=== PATIENT | male | born 1980 | race Caucasian/White ===

== ENCOUNTER 2021-12-21 11:32 | Outpatient (CLI) | payer OTHER, SELFPAY ==
--- OUTSIDE RECORDS SUMMARY | 2021-12-21 11:35 | XMS_ITS | Encounter Summary ---
:1980 Author Care Team Providers Name Role Phone Zeke James MD Referring Provider [phone] Reason for Visit New Patient Visit Assessment and Plan 1. Lesion of penis Discussion Note 41 year old male with palpable ~1cm are a of firmness in mid shaft of penis. Patient does not have any associated pain or voi ding concerns. Suspect this is calcification of penile dorsal vessel. Another conside ring was sebaceous cyst, however, there are no superficial findings on exam to suppo rt this. No further workup required at this time. If he notices it changing or it be comes painful, he should be reevaluated, otherwise he can follow up on an as need ed basis. Patient educational handouts: No information available. Plan of Care Reminders Provider Appointments None recorded. ? ? Lab None recorded. ? ? Referral None recorded. ? ? Procedures None recorded. ? ? Surgeries None recorded. ? ? Imaging None recorded. ? ? Medications Name Start Date ? ? rosuvastatin 10 mg sprinkle capsule ? 10mg 1/day sertraline ? 150mg 1/day Medications Administered None recorded. Vitals Height Weight BMI 6 ft 160 lbs 21.7 kg/m2 Results Lab Results None recorded. Allergies Code Code System Name Reaction Severity Onset NKDA ? ? ? Problems None recorded. Procedures Date Name Performed by ? 12/03/2012 Diagnostic Colonoscopy Information not a vailable Notes: Colonoscopy ? Hernia Repair W/mesh Information not li ilable Notes: Hernia Repair Vaccine List Vaccine Type COVID-19 (SARS-COV-2) vaccine, unspecifi ed 03/15/2021 influenza, unspecified formulation 11/23/2020 Social History Tobacco Smoking Status Never Smoker What is your level of alcohol consumption? Moderate Do you or have you ever used smokeless tobacco? Never used s mokeless tobacco How much tobacco do you chew? none What was the date of your most recent tobacco 10/03/2021 screening? Do you or have you ever used e-cigarettes or Never used elec tronic cigarettes vape? What is your level of caffeine consumption? Heavy Do you use any illicit or recreational drugs? N What is your relationship status? Family History Relation Problem Onset Age of Age Notes Paternal Grandmother Family history of (No Information) N/A (No Notes) breast cancer Mother Family history of (No Information) N/A (No No tenisha) cardiac disorder Functional Status Unknown. Past Encounters 10/03/2021 Lesion of Penis Opal Meraz PA-C: [address] [facility], [address], [place] [address], Ph. History of Present Illness Note: <div>41 year old male here for evaluation of penile concern.</div><div>
</div><div>Patient reports feeling a pea sized lump in the mid shaft the penis. First noticed it a couple months ago. Has not changed in size. No pain associated. No urination symptoms. No pain or issues with ejaculation. No pain or curvature with erections. No history of penile trauma. No testicular symptoms.</div> Review of Systems ? Comprehensive General Adult ROS Reported By: Patient Cardiovascular: Cardiovascular: no chest dylon n, no palpitations Respiratory: Respiratory: no cough, no sh ortness of breath Gastrointestinal: Gastrointestinal: no abdomin al pain, no nausea, no vomiting, no constipation, no GERD; no fr equent diarrhea Genitourinary: Genitourinary: no incontinen ce, no difficulty urinating; no testicular: pain, no testicu lar: lump, no penile: lesion, no dysuria, no change in urinar y stream, no hematuria Physical Exam ? Notes: <div>General: Well nourished . Appears in good health. No acute distress.
Neuro: Awake, a lert, and oriented x 3. No focal neurologic signs. Motor function and sensation grossly intact.
Psych: Mood is appropriate. Good judgement.
Lungs: No dyspnea.
Abdomen: Soft, not distended
Genitalia:<stro ng> Penis with ~1 cm area of firmness within mid shaft, non tender, non mobil e. No lesions or cysts.</strong> The meatus is orthotopic in location and l ocated at the tip of the glans. Scrotum is healthy and well developed. The test is are down. There are no masses. There is no tenderness. The vasa are pal pable bilaterally<strong>. Grade 3 Left varicocele.</strong>
Extr emities: Warm and well perfused. Moves all four extremities equally.
Skin : No edema.</div>
--- OUTSIDE RECORDS SUMMARY | 2021-12-21 11:35 | XMS_ITS | Clinical Summary ---
:1980 Author Organization [email or web address] [place] [address] Care Team Providers Name Role Phone [facility] Of Primary Care Provider Unavailable Allergies No known active allergies Medications Medication Sig Dispensed Refills Start Date End Date Status sertraline (ZOLOFT) TAKE 1 TABLET BY 0 06/11/2020 Active 50 mg tablet MOUTH EVERY DAY TAKE 150MG/DAY TOTAL. rosuvastatin Take 10 mg by 0 04/10/2020 Ac tive (CRESTOR) 10 mg mouth at bedtime. tablet cefdinir (OMNICEF) Take 1 capsule 14 Capsule 0 07/02/2020 Active 300 mg twice daily for 7 capsuleIndications: days for infection Eyelid cellulitis, left Active Problems Problem Noted Date Epigastric abdominal pain 10/23/2012 Overview: EGD 09/2012 normal Social History Tobacco Use Types Packs/Day Years Used Date Never Smoker Smokeless Tobacco: Never Used Alcohol Use Standard Drinks/Week Comments Not Asked 0 (1 standard drink = 0.6 oz pure alcoho l) Sex Assigned at Date Recorded Not on file Obstetrics History Last Filed Vital Signs Vital Sign Reading Time Taken Comments Blood Pressure 150/93 07/02/2020 3:35 PM CDT Pulse 63 07/02/2020 3:35 PM CDT Temperature 36.4 ??C (97.6 ??F) 07/02/2020 3:35 PM CDT Respiratory Rate 16 07/02/2020 3:35 PM CDT Oxygen Saturation 97% 07/02/2020 3:35 PM CDT Inhaled Oxygen Concentration - - Weight 70.3 kg (155 lb) 07/02/2020 3:35 PM CDT Height 182.9 cm (6') 07/02/2020 3:35 PM CDT Body Mass Index 21.02 07/02/2020 3:35 PM CDT Plan of Treatment Health Maintenance Due Date Last Done Comments COVID-19 vaccine series (#1) 01/04/1980 Tdap 07/04/1990 Depression screening for age 12+ 1991 Hepatitis C screening for age 18-79 07/04/1997 Tetanus booster 1999 Lipids for age 35-44 07/04/2014 BMI (ht and wt on same day) for age 18+ 07/02/2021 07/03/19 21 Influenza for age 9-49 11/23/2021 Results Not on filefrom Last 3 Months Insurance Payer Benefit Plan / Subscriber ID Effective Dates Phone Addre ss Type Group PREFERRED ONE PREFERRED ONE [id number] 2017-Present [address] [place] [address] Care Teams Heel Compressor Relationship Specialty Start Date End Date Noble Hoffmann Phys Of PCP - General 07/02/20
--- OUTSIDE RECORDS SUMMARY | 2021-12-21 11:35 | XMS_ITS ---
:1980 Author Care Team Providers Name Role Phone KADY FLORES MD Referring Provider [phone] Allergies Code Code System Name Reaction Severity Status Onset NKDA ? Medications Name Status Start Date Stop Date ? ? rosuvastatin 10 mg sprinkle capsule Active ? Not available 10mg 1/day sertraline Active ? Not available 150mg 1/day Problems None recorded. Procedures Date Name Performed by ? 12/03/2012 Diagnostic Colonoscopy Information not a vailable Notes: Colonoscopy ? Hernia Repair W/mesh Information not li ilable Notes: Hernia Repair Results Lab Results None recorded. Past Encounters 10/03/2021 Lesion of Penis ELIESER DelgadoC: [address] [facility], [facility] [address], [place] [address], Ph. Social History Tobacco Smoking Status Never Smoker Vaccine List Vaccine Type COVID-19 (SARS-COV-2) vaccine, unspecifi ed 03/15/2021 influenza, unspecified formulation 11/23/2020 Plan of Care Reminders Provider Appointments None recorded. ? ? Lab None recorded. ? ? Referral None recorded. ? ? Procedures None recorded. ? ? Surgeries None recorded. ? ? Imaging None recorded. ? ? Vitals Height Weight BMI 6 ft 160 lbs 21.7 kg/m2
[2021-12-21 21:55] LABS: Chloride* 101 mmol/L (96-114)
[2021-12-21 21:56] LABS: Sodium* 140 mmol/L (135-149)
[2021-12-21 21:58] LABS: Aspartate Amino Transferase* 35 U/L (12-35); Bilirubin Total* 0.5 mg/dL (0.1-1.5); Carbon Dioxide* 31 mmol/L (20-32); Cholesterol* 148 mg/dL (90-199); Creatinine* 0.8 mg/dL (0.5-1.5); Estimated Glomerular Filt Rate 113 ml/min; Total Protein* 7.4 g/dL (6.0-8.3)
[2021-12-21 21:59] LABS: Alanine Aminotransferase* 47 U/L (4-50); Alkaline Phosphatase* 62 U/L (40-150); Blood Urea Nitrogen* 17 mg/dL (5-24); Calcium* 10.3 mg/dL (8.4-10.6); Glucose* 110 mg/dL (60-115); HDL Cholesterol* 54 mg/dL (>=40); LDL Cholesterol Calculated 76 mg/dL (<100); Triglycerides* 91 mg/dL (40-149)
[2021-12-21 22:12] LABS: Vitamin D 25 Hydroxy* 34 ng/mL (30-80)
== END 2021-12-21 11:33 | disposition home or self-care (01) ==
PROVIDERS: PCP Family Medicine; Visit Provider Family Medicine
DX: Z00.00 Encounter for general adult medical examination without abnormal findings (principal); E78.5 Hyperlipidemia, unspecified; R79.89 Other specified abnormal findings of blood chemistry
CPT/HCPCS: 80053; 80061; 82306

== ENCOUNTER 2023-02-27 08:06 | Outpatient (CLI) | payer OTHER, SELFPAY | END 2023-02-27 08:07 | disposition home or self-care (01) | LOC: NFLDREF 02-28 10:17 | PROVIDERS: PCP Family Medicine; Referring Provider Family Medicine; Visit Provider Family Medicine | DX: E78.5 Hyperlipidemia, unspecified (principal); R79.89 Other specified abnormal findings of blood chemistry | CPT/HCPCS: 80061; 80076 ==

== ENCOUNTER 2024-02-14 08:02 | Outpatient (CLI) | payer BC, SELFPAY | END 2024-02-14 08:03 | disposition home or self-care (01) | PROVIDERS: PCP Family Medicine; Visit Provider Family Medicine | DX: R03.0 Elevated blood-pressure reading, without diagnosis of hypertension (principal); R79.89 Other specified abnormal findings of blood chemistry; E78.5 Hyperlipidemia, unspecified; F41.8 Other specified anxiety disorders | CPT/HCPCS: 80053; 80061; 82306 ==

== ENCOUNTER 2025-02-04 09:32 | Outpatient (CLI) | payer BC, SELFPAY | END 2025-02-04 09:33 | disposition home or self-care (01) | LOC: LKVREF 09:34 | PROVIDERS: PCP Family Medicine; Visit Provider Family Medicine | DX: E78.5 Hyperlipidemia, unspecified (principal); R79.89 Other specified abnormal findings of blood chemistry | CPT/HCPCS: 80053; 80061; 82306 ==

== ENCOUNTER 2025-03-02 09:29 | Outpatient (CLI) | payer BC, SELFPAY ==
--- NOTE | 2025-03-02 10:28 | P.ANES_ITS ---
Anesthesia Charges Start Date/Time Anesthesia Start Date: 03/02/25 Anesthesia Start Time: 10:00 Stop Date/Time Anesthesia Stop Date: 03/02/25 Anesthesia Stop Time: 10:27 Coding CPT Codes CPT Codes: ZACH LWR INTST NDSC NOS - 89502 ([id number]) P2 - PATIENT W/MILD SYST DISEASE, QK - CAP COVERER 2-4 CNCRNT ANES PROC, QX - AIRLINE CAPTAIN SVC W/ MD MED DIRECTION
--- NOTE | 2025-03-02 10:28 | W.ANESCHARGE ---
Anesthesia Charges Start Date/Time Anesthesia Start Date: 03/02/25 Anesthesia Start Time: 10:00 Stop Date/Time Anesthesia Stop Date: 03/02/25 Anesthesia Stop Time: 10:27 Coding CPT Codes CPT Codes: ZACH LWR INTST NDSC NOS - 81195 ([id number]) P2 - PATIENT W/MILD SYST DISEASE, QK - HOME HEALTH CARE CASE MANAGER 2-4 CNCRNT ANES PROC, QX - BLADE SHARPENER SVC W/ MD MED DIRECTION
--- NOTE | 2025-03-02 10:49 | P.ANES_ITS ---
Anesthesia Charges Start Date/Time Anesthesia Start Date: 03/02/25 Anesthesia Start Time: 10:00 Stop Date/Time Anesthesia Stop Date: 03/02/25 Anesthesia Stop Time: 10:27 Coding CPT Codes CPT Codes: ZACH LWR INTST NDSC NOS - 97480 ([id number]) P2 - PATIENT W/MILD SYST DISEASE, QK - SUPERVISOR TREATING AND PUMPING 2-4 CNCRNT ANES PROC, QX - NURSE ADMINISTRATOR SVC W/ MD MED DIRECTION
--- NOTE | 2025-03-02 10:49 | W.ANESCHARGE ---
Anesthesia Charges Start Date/Time Anesthesia Start Date: 03/02/25 Anesthesia Start Time: 10:00 Stop Date/Time Anesthesia Stop Date: 03/02/25 Anesthesia Stop Time: 10:27 Coding CPT Codes CPT Codes: ZACH LWR INTST NDSC NOS - 14849 ([id number]) P2 - PATIENT W/MILD SYST DISEASE, QK - RAZOR GRINDER 2-4 CNCRNT ANES PROC, QX - FIRE EXTINGUISHER MECHANIC SVC W/ MD MED DIRECTION
== END 2025-03-02 09:30 | disposition home or self-care (01) ==
LOC: OP CLINIC 09:30
PROVIDERS: PCP Family Medicine; Visit Provider Surgery
DX: Z12.11 Encounter for screening for malignant neoplasm of colon (principal); D12.0 Benign neoplasm of cecum
CPT/HCPCS: 00811; 00812; 45385; J2704